=== PATIENT | female | born 1940 | race Caucasian/White ===

== ENCOUNTER → 2017-02-09 | Outpatient (CLI) | payer MEDICARE, BC ==
[2013-10-25 11:05] VITALS: BP 127/55
[~2017-02-09] MED LIST: ASPIRIN ADULT L81 M3 PO; CALCIUM/VITAMIN1 CAP PO; CARDURA2 MG PO; DILTIAZEM HCL240 M1 PO; ICAPS MV1 TAB PO; LISINOPRIL10 MG PO; MOBIC15 MG PO; ZINC100 MG PO; ZOFRAN ODT8 MG PO
== END ==
LOC: RAD 02-08 10:56
DX: Z13.820 Encounter for screening for osteoporosis (principal); M85.80 Other specified disorders of bone density and structure, unspecified site

== ENCOUNTER → 2017-02-09 | Outpatient (CLI) | payer MEDICARE, BC ==
[2013-10-25 11:05] VITALS: BP 127/55
== END ==
LOC: MAMMO 02-08 10:54
DX: Z12.31 Encounter for screening mammogram for malignant neoplasm of breast (principal)
CPT/HCPCS: G0202

== ENCOUNTER → 2018-04-04 | Outpatient (CLI) | payer MEDICARE, BC ==
[2013-10-25 11:05] VITALS: BP 127/55
== END ==
LOC: MAMMO 14:20
DX: Z12.31 Encounter for screening mammogram for malignant neoplasm of breast (principal); Z98.890 Other specified postprocedural states

== ENCOUNTER → 2019-05-01 | Outpatient (CLI) | payer MEDICARE, BC ==
[2013-10-25 11:05] VITALS: BP 127/55
== END ==
LOC: MAMMO 09:53
DX: Z12.31 Encounter for screening mammogram for malignant neoplasm of breast (principal)

== ENCOUNTER → 2019-05-01 | Outpatient (CLI) | payer MEDICARE, BC ==
[2013-10-25 11:05] VITALS: BP 127/55
== END ==
LOC: RAD 09:55 → MAMMO 10:45
DX: M85.852 Other specified disorders of bone density and structure, left thigh (principal); M81.0 Age-related osteoporosis without current pathological fracture

== ENCOUNTER → 2020-06-17 | Outpatient (CLI) | payer MEDICARE, BC ==
[2013-10-25 11:05] VITALS: BP 127/55
== END ==
LOC: MAMMO 08:29
DX: Z12.31 Encounter for screening mammogram for malignant neoplasm of breast (principal); Z90.12 Acquired absence of left breast and nipple

== ENCOUNTER → 2021-06-18 | Outpatient (CLI) | payer MEDICARE, BC | LOC: MAMMO 09:28 | DX: Z12.31 Encounter for screening mammogram for malignant neoplasm of breast (principal) ==

== ENCOUNTER → 2021-06-18 | Outpatient (CLI) | payer MEDICARE, BC | LOC: RAD 09:49 → MAMMO 10:45 | DX: Z13.820 Encounter for screening for osteoporosis (principal); M85.88 Other specified disorders of bone density and structure, other site ==

== ENCOUNTER → 2022-06-22 | Outpatient (CLI) | payer MEDICARE, BC | LOC: MAMMO 09:15 | DX: Z12.31 Encounter for screening mammogram for malignant neoplasm of breast (principal) ==

== ENCOUNTER → 2024-01-16 | Outpatient (CLI) | payer MEDICARE, BC | LOC: MAMMO 10:58 | DX: Z12.31 Encounter for screening mammogram for malignant neoplasm of breast (principal) ==

== ENCOUNTER → 2024-04-10 | Outpatient (CLI) | payer MEDICARE, BC ==
[~2024-04-10] MED LIST changes: +CEPHALEXIN500 M1 PO
== END ==
LOC: RAD 07:30
DX: F03.B0 Unspecified dementia, moderate, without behavioral disturbance, psychotic disturbance, mood disturbance, and anxiety (principal)

== ENCOUNTER 2024-04-14 17:01 | Emergency (ER) | payer MEDICARE, BC ==
[~2024-04-14] VITALS: Ht 152.4 cm; Wt 62.7 kg
[~2024-04-14 17:01] MED LIST changes: -CEPHALEXIN500 M1 PO
[2024-04-14 17:31] LABS: BASO # 0.02 K/mm3 (0.02-0.10); EOS # 0.09 K/mm3 (0.04-0.40); HEMATOCRIT 36.2 % (37.0-47.0); HEMOGLOBIN 11.8 g/dL (12.5-16.0); LYMPH# 1.26 K/mm3 (1.50-4.00); MEAN CELL VOLUME 97 fl (78-100); MEAN CORPUSCULAR HEMOGLOBIN 32 pg (27-31); MEAN CORPUSCULAR HGB CONC 33 g/dL (33-37); MEAN PLATELET VOLUME 9.8 fl (7.4-10.4); NEU # 2.81 K/mm3 (1.40-6.50); PLATELET COUNT 142 K/mm3 (130-400); RED BLOOD COUNT 3.73 M/mm3 (4.10-5.30); RED CELL DISTRIBUTION WIDTH 13.2 % (11.5-14.5); WHITE BLOOD COUNT 4.5 K/mm3 (4.8-10.8)
[2024-04-14 17:39] LABS: ALBUMIN 3.7 g/dL (3.4-4.8)
[2024-04-14 17:41] LABS: CALCIUM 9.5 mg/dL (8.3-10.5)
[2024-04-14 17:42] LABS: TOTAL PROTEIN 6.8 g/dL (6.2-8.1)
[2024-04-14 17:44] LABS: TOTAL BILIRUBIN 0.3 mg/dL (0.2-1.2)
[2024-04-14] MEDS ORDERED: cefTRIAXone 1 G in Water For Injection,Sterile 10 ML IV ONE (17:45)
[2024-04-14] MEDS ORDERED: Iodixanol-320 100 ML BOTTLE IV ONE (18:09)
[2024-04-14 18:39] LABS: PH-URINE 5.5 (5.0 - 8.0); URINE APPEARANCE TURBID (CLEAR); URINE BILIRUBIN NEGATIVE (NEGATIVE); URINE BLOOD 3+ (NEGATIVE); URINE COLOR YELLOW (YELLOW); URINE GLUCOSE NEGATIVE (NEGATIVE); URINE KETONE NEGATIVE (NEGATIVE); URINE LEUKOCYTE ESTERASE 3+ (NEGATIVE); URINE NITRATE POSITIVE (NEGATIVE); URINE PROTEIN(semi-quant) TRACE (NEGATIVE); URINE WBC >50 /hpf (0-3)
[2024-04-14] MEDS ORDERED: NS 500 ML IV SCH (19:30)
[2024-04-14] MEDS ORDERED: CEPHALEXIN500 M1 PO (21:00)
[2024-04-14 21:20] VITALS: BP 130/64
== END 2024-04-14 21:30 | disposition home or self-care (01) ==
LOC: ED 17:01
PROVIDERS: Family Medicine
DX: N39.0 Urinary tract infection, site not specified (principal); R07.9 Chest pain, unspecified; Z88.2 Allergy status to sulfonamides
CPT/HCPCS: J0696; J7040; J7120; Q9967